=== PATIENT | male | born 1930 | race Caucasian/White ===

== ENCOUNTER → 2021-02-25 | Outpatient (CLI) | payer MEDICARE, OTHER ==
--- NOTE | 2021-02-25 09:04 | RAD ---
EXAM: Left lower extremity venous Doppler. HISTORY: Left lower extremity pain/swelling. COMPARISON: None. FINDINGS: Grayscale and Doppler analysis of the left lower extremity deep venous system was performed with graded compression and augmentation. The common femoral, greater saphenous, superficial femoral , popliteal and calf veins were assessed. There is no evidence of deep venous thrombosis. Subcutaneous edema is noted. IMPRESSION: 1. No evidence of deep venous thrombosis. Electronically signed by: Mann Cloud MD (02/25/2021 9:01 AM) [id number]
--- NOTE | 2021-02-25 16:48 | RAD ---
Exam Date: 02/25/2021 9:52 AM MRI LEFT LOWER EXTREMITY W/O Indication: Reason: left foot ulcers / Spl. Instructions: / History: . TECHNIQUE: Multiplanar MR imaging of the left foot was performed without intravenous contrast. 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 Mild degenerative changes seen at the metatarsophalangeal joints. Hammertoe deformities are seen involving the second, third, and fourth toes. There is no acute fracture. No osseous destru ctive changes or abnormal T1 marrow signal is seen to suggest acute osteomyelitis. There is diffuse soft tissue edema which is nonspecific but may represent cellulitis. No loculated co llection is seen to suggest abscess, though evaluation for abscess is limited in the absence of IV co ntrast. IMPRESSION: Prominent degenerative changes as described. No evidence for acute osteomyelitis. Diffuse soft tissue edema is nonspecific but may represent cellulitis. No organized collection/absces s is seen, though evaluation for abscess is limited in the absence of IV contrast. Electronically signed by: Finesse Frazier MD (02/25/2021 4:46 PM) [id number]
== END ==
LOC: US 07:55
PROVIDERS: ATTEND Family Medicine
DX: M20.42 Other hammer toe(s) (acquired), left foot (principal); M25.872 Other specified joint disorders, left ankle and foot; M79.89 Other specified soft tissue disorders; E11.621 Type 2 diabetes mellitus with foot ulcer; I87.2 Venous insufficiency (chronic) (peripheral)
CPT/HCPCS: 73718; 93971